=== PATIENT | male | born 1980 | race African-American/Black ===

== ENCOUNTER 2024-12-23 14:01 | Emergency (ER) | payer OTHER ==
[2024-12-23 14:07] VITALS: BP 110/81; PULSE 68; RESP 20; TEMP 97.9; BMI 23.1
[2024-12-23] MEDS: IBUPROFEN 600 MG TABLET (FP) PO ONE (14:15)
== END 2024-12-23 14:51 | disposition home or self-care (01) ==
LOC: JERFT 14:01
DX: K04.7 Periapical abscess without sinus (principal)
CPT/HCPCS: 99283-25